=== PATIENT | female | born 1965 | race Caucasian/White ===

== ENCOUNTER 2020-05-19 05:30 | Day surgery (SDC) | payer OTHER ==
[2020-05-18 16:10] VITALS: BMI 29.9
[2020-05-19] MEDS ORDERED: COCAINE HCL 4% TOPICAL SOLUTION 4 ML BOTTLE TP ONE ×2 (07:23→08:25)
[2020-05-19] MEDS ORDERED: LIDOCAINE 1%/EPI 1:100000 (50 ML MULTI DOSE VIAL) ONE (07:25)
[2020-05-19] MEDS ORDERED: BACITRACIN 15 GM TUBE TOPICAL OINTMENT ONE (07:25)
[2020-05-19] MEDS ORDERED: PROPOFOL 20 ML ONE ×2 (07:34)
[2020-05-19] MEDS ORDERED: DEXAMETHASONE SOD PHOSPHATE 4 MG/1 ML VIAL ONE (07:34)
[2020-05-19] MEDS ORDERED: ROCURONIUM BROMIDE 50 MG/5 ML SYRINGE ONE (07:34)
[2020-05-19] MEDS ORDERED: SUCCINYLCHOLINE CHLORIDE 200 MG/10 ML SYRINGE ONE (07:34)
[2020-05-19] MEDS ORDERED: MIDAZOLAM HCL 2 MG/2 ML SINGLE DOSE VIAL ONE (07:34)
[2020-05-19] MEDS ORDERED: ceFAZolin SODIUM 1 GM VIAL ONE ×2 (08:08→08:11)
[2020-05-19] MEDS ORDERED: ceFAZolin SODIUM 1 GM VIAL IVPB ONE (08:10)
[2020-05-19] MEDS ORDERED: LIDOCAINE 1%/EPI 1:100000 (50 ML MULTI DOSE VIAL) INF ONE (08:25)
[2020-05-19] MEDS ORDERED: NEOSTIGMINE METHYLSULFATE 0.5 MG/ML - 10 ML MDV ONE (09:09)
[2020-05-19] MEDS ORDERED: GLYCOPYRROLATE 0.2 MG/1 ML VIAL ONE (09:09)
[2020-05-19] MEDS ORDERED: ONDANSETRON 4 MG/2 ML VIAL IVPUSH PRN (09:26)
[2020-05-19] MEDS ORDERED: oxyCODONE HCL 5 MG TABLET PO PRN (09:26)
[2020-05-19] MEDS ORDERED: LACTATED RINGERS SOLUTION 1,000 ML IV SCH (09:30)
[2020-05-19 12:11] VITALS: TEMP 98.4
[2020-05-19 12:17] VITALS: BP 121/81; PULSE 75
== END 2020-05-19 12:22 | disposition home or self-care (01) ==
LOC: JASU-SURG 05:30
PROVIDERS: ATTEND Otolaryngology
PROC: 09BV8ZZ Excision of Left Ethmoid Sinus, Via Natural or Artificial Opening Endoscopic (ICD-10-PCS; 2020-05-19)
PROC: 09BU8ZZ Excision of Right Ethmoid Sinus, Via Natural or Artificial Opening Endoscopic (ICD-10-PCS; 2020-05-19)
PROC: 8E09XBZ Computer Assisted Procedure of Head and Neck Region (ICD-10-PCS; 2020-05-19)
PROC: 8E09XBZ Computer Assisted Procedure of Head and Neck Region (ICD-10-PCS; principal; 2020-05-19 08:00)
DX: J32.8 Other chronic sinusitis (principal); J33.9 Nasal polyp, unspecified; J34.3 Hypertrophy of nasal turbinates
CPT/HCPCS: 88304-TC; 94760

== ENCOUNTER 2021-01-15 11:05 | Emergency (ER) | payer OTHER ==
[2021-01-15 11:20] VITALS: BP 121/85; PULSE 77; TEMP 98.4; BMI 31.6
== END 2021-01-15 12:23 | disposition home or self-care (01) ==
LOC: JER 11:05
DX: R05 Cough (principal); J45.41 Moderate persistent asthma with (acute) exacerbation; Z11.52 Encounter for screening for COVID-19
CPT/HCPCS: 71046-TC-FY; 99284-25; C9803; U0003; U0005